=== PATIENT | male | born 2000 | race Caucasian/White ===

== ENCOUNTER 2019-03-17 20:49 | Emergency (ER) | payer OTHER ==
[~2019-03-17] VITALS: Ht 170.2 cm; Wt 54.4 kg
[2019-03-17 20:52] VITALS: BP_SYST 143
--- NOTE | 2019-03-17 20:55 | NUR ---
Pt to ER bed 4 for evaluation.
--- NOTE | 2019-03-17 21:00 | NUR ---
Pt is alert and oriented. Mother at bedside. Pt C/O right chest wall and shoulder pain. Pt states he was at work when a tree branch fell and hit his right chest and shoulder. Some redness noted to right chest and shoulder. Pain stated 04/13. No other complaints noted at this time. Will continue to monitor.
--- NOTE | 2019-03-17 21:15 | NUR ---
MOISES SANCHEZ AT BEDSIDE.
[2019-03-17] MEDS ORDERED: KETOROLAC TROMETHAMINE 60 MG/2 ML VIAL IM ONE (21:45)
--- NOTE | 2019-03-17 21:55 | NUR ---
computer technology instructor at bedside for blood draw.
[2019-03-17 22:11] LABS: BASOPHILS # (AUTO) 0.1 K/uL (0.0-0.2); BASOPHILS % (AUTO) 0.9 % (0.0-2.0); EOSINOPHILS % (AUTO) 0.3 % (0.0-4.0); HEMATOCRIT 43.9 % (36-54); HEMOGLOBIN 15.3 g/dL (14.0-18.0); LYMPHOCYTES # (AUTO) 2.6 K/uL (1.0-5.5); LYMPHOCYTES % (AUTO) 34.5 % (20.5-51.5); MEAN CORPUSCULAR HEMOGLOBIN 33 pg (27-31); MEAN CORPUSCULAR HGB CONC 35 % (32-36); MEAN CORPUSCULAR VOLUME 95 fL (79.0-98.0); MONOCYTES # (AUTO) 0.8 K/uL (0.0-1.0); MONOCYTES % (AUTO) 10.7 % (1.7-9.3); NEUTROPHILS # (AUTO) 4.1 K/uL (1.8-7.7); NEUTROPHILS % (AUTO) 53.6 % (40.0-70.0); PLATELET COUNT (AUTO) 228 K/uL (130-430); RED BLOOD CELL COUNT(AUTO) 4.62 MIL/uL (4.2-6.2); RED CELL DISTRIBUTION WIDTH 12.9 % (9.0-15.0); WHITE BLOOD COUNT (AUTO) 7.6 K/uL (4.5-11.0)
[2019-03-17 22:25] LABS: CALCIUM 9.5 mg/dL (8.4-11.0); CREATININE 0.92 mg/dL (0.55-1.30); POTASSIUM 3.7 mmol/L (3.5-5.1)
[2019-03-17 22:31] LABS: ALBUMIN 4.3 g/dL (3.4-4.8); TOTAL BILIRUBIN 0.5 mg/dL (0.0-1.0)
--- NOTE | 2019-03-17 23:20 | NUR ---
Pt given directions how to use sling. Pt understands instructions.
[2019-03-17 23:25] VITALS: BP_SYST 122
--- NOTE | 2019-03-17 23:25 | NUR ---
Patient given written and verbal discharge instructions and verbalizes understanding. ER MD Maher discussed with patient the results and treatment provided. Patient in stable condition. ID arm band removed. IV catheter removed intact and dressing applied, no active bleeding. Rx of [place], and Ibuprofen given. Patient educated on pain management and to follow up with PMD. Pain Scale 0/10. Opportunity for questions provided and answered. Medication side effect fact sheet provided.
== END 2019-03-17 23:25 | disposition home or self-care (01) ==
LOC: SED 20:49
DX: S43.401A Unspecified sprain of right shoulder joint, initial encounter (principal); S20.211A Contusion of right front wall of thorax, initial encounter; W20.8XXA Other cause of strike by thrown, projected or falling object, initial encounter; Y93.89 Activity, other specified; Y92.89 Other specified places as the place of occurrence of the external cause; Y99.8 Other external cause status
CPT/HCPCS: 36415; 71046; 73030; 80053; 85025; 96372; 99284; J1885

== ENCOUNTER 2022-06-25 08:07 | Emergency (ER) | payer OTHER ==
[~2022-06-25] VITALS: Ht 170.2 cm; Wt 55.3 kg
[2022-06-25 08:13] VITALS: BP_SYST 117
--- NOTE | 2022-06-25 08:46 | NUR ---
Patient to ER bed 06 to gown for evaluation. Side rails up. Report given to Cortney WERNER.
--- NOTE | 2022-06-25 08:48 | NUR ---
Pt brought by self,A&Ox4, pt presents to ER with N/V, bodyaches, pt states he was diagnosed with flu yesterday, pt afebrile, VSS, respirations even and unlabored, will cont to monitor.
[2022-06-25] MEDS ORDERED: ONDA-8 TL (08:50)
--- NOTE | 2022-06-25 08:55 | NUR ---
Dr Atkins evaluating patient in the triage room
[2022-06-25] MEDS ORDERED: ONDANSETRON 4 MG ODT TAB PO ONE (09:00)
[2022-06-25 09:17] VITALS: BP_SYST 117
--- NOTE | 2022-06-25 09:17 | NUR ---
Patient given written and verbal discharge instructions and verbalizes understanding. ER MD discussed with patient the results and treatment provided. Patient in stable condition. ID arm band removed. Rx of Zofran given. Patient educated on pain management and to follow up with PMD. Pain Scale 2/10. Opportunity for questions provided and answered. Medication side effect fact sheet provided.
== END 2022-06-25 09:17 | disposition home or self-care (01) ==
LOC: SED 08:07
DX: J11.1 Influenza due to unidentified influenza virus with other respiratory manifestations (principal); R11.2 Nausea with vomiting, unspecified; R05.9 Cough, unspecified; R09.81 Nasal congestion; Z79.899 Other long term (current) drug therapy
CPT/HCPCS: 99283; Q0162